=== PATIENT | male | born 1980 | race Caucasian/White ===

== ENCOUNTER 2019-09-06 18:03 | Emergency (ER) | payer BC ==
--- OUTSIDE RECORDS SUMMARY | 2019-09-06 18:10 | XMS REPORT | Continuity of Care Document ---
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 Problems Provider Date FH: Polycystic kidney [facility] On[facility]: 02/22/2018 Social History Type Date Description Comments Sex Unknown Tobacco Use Start: Unknown Never Smoked Cigarettes Smoking Status Reviewed: 08/01/19 Never Smoked Cigarettes ETOH Use 02/22/2018 consumed 1-2 glasses of wine per week Tobacco Use Start: Unknown Patient has never smoked Recreational Drug Use Denies Drug Use Exercise Type/Frequency Exercises sporadically vigorous Allergies, Adverse Reactions, Alerts Description No Known Drug Allergies Medications Active Medications SIG Qnty Indications Ordering Provider Date Vitamin B-12 Roni Campos NP 08/01/2019 50mcg Tablets Bupropion Hydrochloride 1 by mouth 30tabs F32.89 Roni Campos NP 06/25/2019 ER (XL) every day 150mg Tablets ER 24HR Medications Administered in Office Medication SIG Qnty Indications Ordering Provider Date Hepatitis B,Unspecified Unknown 05/11/1998 Injection Td(Adult),Unspecified Unknown 07/01/1996 Injection Hepatitis B,Unspecified Unknown 07/01/1996 Injection Hepatitis B,Unspecified Unknown 06/20/1995 Injection Polio,Unspecified Unknown 02/08/1987 Injection Immunizations CPT Code Status Date Vaccine Lot # [id number] Given 04/27/2011 Measles Mumps And Rubella MMR 39798 Given 04/11/2010 Tetanus And Diptheria (Td) For Adult Use Preservative Free 54526 Given 07/01/1996 Varicella (Chicken Pox) Immunization 38856 Given 05/19/1991 Measles Mumps And Rubella MMR 71799 Given 04/05/1983 Measles Mumps And Rubella MMR Vital Signs Date Vital Result Comment 08/01/2019 10:34am Height 73.5 inches 6'1.50" Weight 182.38 lb Heart Rate 66 /min BP Systolic 100 mmHg BP Diastolic 59 mmHg Body Temperature 97.8 F O2 % BldC Oximetry 97 % BMI (Body Mass Index) 23.7 kg/m2 06/25/2019 11:57am Height 73.5 inches 6'1.50" Weight 181.25 lb Heart Rate 70 /min BP Systolic 107 mmHg BP Diastolic 70 mmHg Body Temperature 97.3 F O2 % BldC Oximetry 98 % BMI (Body Mass Index) 23.6 kg/m2 Results Test Date Facility Test Result H/L Range Note CBC Auto 06/25/2019 [facility] White Blood 5.8 10^3/uL Normal 3.5-10.[address] [place] [address] [phone] Red Blood Count 5.18 10^6/uL Normal 4.18-5.48 Hemoglobin 15.7 g/dL Normal 14.0-18.0 Hematocrit 46 % Normal 42-52 Mean Corpuscular Volume 90 fL Normal 80-94 Mean Corpuscular Hemoglobin 30 pg Normal 27-31 Mean Corpuscular HGB Conc 34 g/dL Normal 31-36 Red Cell Distribution Width 13 % Normal 10-15 Platelet Count 152 10^3/uL Normal 150-450 Mean Platelet Volume 9.3 fL Normal 7.4-10.4 Abs Neutrophils 3.2 10^3/uL Normal 1.5-7.7 Abs Lymphocytes 1.8 10^3/uL Normal 1.0-4.8 Abs Monocytes 0.5 10^3/uL Normal 0-0.8 Abs Eosinophils 0.2 10^3/uL Normal 0-0.6 Abs Basophils 0.0 10^3/uL Normal 0-0.2 Abs Nucleated RBC 0.0 10^3/uL Granulocyte % 55.4 % Lymphocyte % 31.8 % Monocyte % 8.8 % Eosinophil % 3.7 % Basophil % 0.3 % Nucleated Red Blood Cells % 0.1 Laboratory 06/25/2019 [facility] TSH (Thyroid 1.93 Normal 0.34 -5.60 test finding [address] Stim Horm) mcIU/[place] [address] [phone] Vitamin B12 209 pg/mL Normal 180-914 1 1 Normal Range 180 to 914 Indeterminate Range 145 to 180 Deficient Range <145 Procedures Description No Information Available Medical Devices Description No Information Available Encounters Type Date Location Provider Dx Diagnosis Office Visit 06/25/2019 [facility] Roni Campos NP F32.89 Other specified 11:40a Medicine - [facility] depressive episodes Assessments Date Code Description Provider 08/01/2019 F32.89 Other specified depressive episodes Roni Campos NP 06/25/2019 F32.89 Other specified depressive episodes Roni Campos NP Plan of Treatment 08/01/2019 - Roni Campos NPF32.89 Other specified depressive episodesComments:I encourage you to start taking the bupropion soon. Functional Status Description No Information Available Mental Status Description No Information Available Referrals Description No Information Available
[2019-09-06 18:16] VITALS: BP 100/64
--- NOTE | 2019-09-06 18:24 | UC ---
Skin Complaint HPI - HPI Summary HPI Summary: Pt presents with c/o circular red rash to left upper anterior chest wall. Pt states that he was bit by a tick 2 weeks ago and removed the tick at home. Pt now states that 2 days ago he began to feel achy, feverish, and rash on upper anterior chest wall. - History of Current Complaint Chief Complaint: UCSkin Time Seen by Provider: 09/06/19 18:10 Stated Complaint: TICK BITE A FEW WEEKS AGO Hx Obtained From: Patient Onset/Duration: Sudden Onset, Lasting Days, Still Present Skin Exposure Onset/Duration: Days Ago Timing: Constant Onset Severity: Mild Current Severity: Mild Pain Intensity: 0 Location: Discrete - left [place] chest Character: Redness Aggravating Factor(s): Nothing Alleviating Factor(s): Unknown Associated Signs & Symptoms: Positive: Rash Related History: Insect Bite/Sting - Allergy/Home Medications Allergies/Adverse Reactions: Allergies Allergy/AdvReac Type Severity Reaction Status Date / Time No Known Allergies Allergy Verified 09/06/19 18:17 Home Medications: Home Medications B12/Iodin/Mag/Zinc/Vidya/Muez422 [Adrenoid Capsule] 09/06/19 [History] Mv-Min/Vit C/Glut/Lysine/Hb124 [Airborne Effervescent Tablet] 09/06/19 [History ] PMH/Surg Hx/FS Hx/Imm Hx Previously Healthy: Yes - Surgical History Surgical History: Yes Surgery Procedure, Year, and Place: ACL reconstruction 1999 - Family History Known Family History: Positive: Cardiac Disease - Social History Occupation: Employed Full-time Lives: With Family Alcohol Use: Weekly Substance Use Type: None Smoking Status (MU): Never Smoked Tobacco Have You Smoked in the Last Year: No Review of Systems All Other Systems Reviewed And Are Negative: Yes Constitutional: Positive: Fever, Chills Skin: Positive: Rash - left anterior chest wall Eyes: Positive: Negative ENT: Positive: Negative Respiratory: Positive: Negative Cardiovascular: Positive: Negative Gastrointestinal: Positive: Negative Genitourinary: Positive: Negative Motor: Positive: Negative Neurovascular: Positive: Negative Musculoskeletal: Positive: Myalgia Neurological: Positive: Negative Psychological: Positive: Negative Is Patient Immunocompromised?: No Physical Exam Triage Information Reviewed: Yes Appearance: Well-Appearing Vital Signs: Initial Vital Signs Temp 100.1 F 09/06/19 18:10 Pulse 84 09/06/19 18:10 Resp 16 09/06/19 18:10 BP 100/64 09/06/19 18:10 Pulse Ox 99 09/06/19 18:10 Vital Signs Reviewed: Yes Eye Exam: Normal ENT: Positive: Hearing grossly normal Dental Exam: Normal Neck exam: Normal Respiratory Exam: Normal Cardiovascular Exam: Normal Musculoskeletal Exam: Normal Neurological Exam: Normal Psychological Exam: Normal Skin: Positive: Rashes - erythematous flat rash, circular, with some central clearing. Course/Dx - Differential Diagnoses - Skin Complaint Differential Diagnoses: Cellulitis, Tick Born Illness - Diagnoses Provider Diagnosis: Rash Discharge ED - Sign-Out/Discharge Documenting (check all that apply): Patient Departure All imaging exams completed and their final reports reviewed: No Studies - Discharge Plan Condition: Stable Disposition: HOME Prescriptions: DOXYcycline CAP(*) [DOXYcycline 100MG CAP(*)] 100 mg PO Q12H #20 cap Patient Education Materials: Tick Bite (ED) Referrals: Roni Campos [facility] [Primary Care Provider] - If Needed - Billing Disposition and Condition Condition: STABLE Disposition: Home
== END 2019-09-06 18:30 | disposition home or self-care (01) ==
LOC: UCEAST 18:03
DX: R21 Rash and other nonspecific skin eruption (principal)
CPT/HCPCS: 99212; G0463